=== PATIENT | male | born 1950 | race Asian ===

== ENCOUNTER → 2018-11-06 | Outpatient (CLI) | payer BC ==
[~2018-11-06] MED LIST: LIPITOR 10MG10 MG PO; NIASPAN 500MG500 MG PO; NORCO 325 MG-51 TAB PO
== END ==
LOC: DIA.ED 10:14 → SUN.DIA 15:58
DX: E11.9 Type 2 diabetes mellitus without complications (principal); E78.5 Hyperlipidemia, unspecified
CPT/HCPCS: G0108

== ENCOUNTER 2018-12-07 11:30 | Outpatient (RCR) | payer BC | END 2019-01-29 | disposition still patient (30) | LOC: MKS.ESL.PT | DX: M17.12 Unilateral primary osteoarthritis, left knee (principal); M25.511 Pain in right shoulder; M25.561 Pain in right knee ==

== ENCOUNTER 2021-07-30 11:00 | Outpatient (RCR) | payer BC, MEDICARE | END 2021-08-05 | disposition home or self-care (01) | LOC: MKS.ESL.PT | DX: M65.812 Other synovitis and tenosynovitis, left shoulder (principal) ==

== ENCOUNTER 2021-08-09 10:30 | Outpatient (RCR) | payer BC, MEDICARE | END 2021-09-04 | disposition home or self-care (01) | LOC: MKS.ESL.PT | DX: M65.812 Other synovitis and tenosynovitis, left shoulder (principal) ==

== ENCOUNTER 2021-09-27 14:10 | Outpatient (RCR) | payer BC, MEDICARE | END 2021-09-27 14:11 | disposition home or self-care (01) | LOC: MKS.ESL.PT 14:10 | DX: M65.812 Other synovitis and tenosynovitis, left shoulder (principal) ==